=== PATIENT | male | born 1975 | race Caucasian/White ===

== ENCOUNTER 2016-04-16 09:05 | Emergency (ER) | payer OTHER ==
[2016-04-16 09:24] VITALS: BP 131/84
--- NOTE | 2016-04-16 09:56 | UC ---
Milad Herron Salem, [facility] on 04/16/16 at 0936 . Back Pain HPI - HPI Summary HPI Summary: HPI: Patient is a 41 y/o male who presents to the with left lower back pain since 3 days ago. He states that he has been experiencing intermittent back pain for a few years since onset years ago related to an incident with moving stones. Pt reports that pain recently worsened: starting in left lower back pain and moving to the whole lower back and to abd tightness after BM. He describes the pain as sharp, shooting, and stabbing. He also reports tingling in the lower extremities radiating to the toes (although this is a continuing sx). Pt has no other complaints, but reports coughing and congestion from smoking. FHx: TONY WHALEN note: VSS, post ox: 98%, 8/10 left lumbar pain, rare EtOH, 1-pack per day smoker. Hx of chronic pain. Visit review: MRI in 2012, back pain complaint June 2013, o/w non-contributory. Allergic cephalexin, on no prescription medication. [facility] Ref : [id number] Vicodin [id number] 2015. MRI: Low left leg radiculopathy on 11/24/12 showing degenerative spondylosis and facet joint osteoarthritis without significant central canal foraminal stenosis at any level Nurses note: Per pt, Has chronic back issues, herniated discs and crushed disc in low back, L -1, L-2. Has chronic pain, but got worse on 04/13/16, after being on the toilet. Pain shoots up to a 10 with certain movements, otherwise is at a 7-8 out of 10. - History of Current Complaint Chief Complaint: UCBackPain Stated Complaint: LOWER BACK PAIN Time Seen by Provider: 04/16/16 09:18 Hx Obtained From: Patient Onset/Duration: Gradual Onset, Lasting Weeks - Years. Timing: Intermittent Severity Initially: Moderate Severity Currently: Moderate Back Pain: Radiates To - toe. Character: Sharp - Shooting and stabbing. Aggravating: Nothing Alleviating: Nothing Associated Signs And Symptoms: Positive: Tingling - in legs., Abdominal Pain - Abd tightness. - Allergies/Home Medications Allergies/Adverse Reactions: Allergies Allergy/AdvReac Type Severity Reaction Status Date / Time Cephalexin [From Keflex] AdvReac Severe Diarrhea Verified 09/13/15 16:44 Home Medications: Home Medications Aspirin-Caffeine [Vanessa Back & Body 500-32.5 mg] 2 tab PO PRN 04/16/16 [History] PMH/Surg Hx/FS Hx/Imm Hx Endocrine History Of: Denies: Diabetes, Thyroid Disease - Surgical History Surgical History: Yes Surgery Procedure, Year, and Place: PIECE OF METAL REMOVED FROM Lt FOOT. CYST - Lt ARM - Family History Known Family History: Positive: Other - CA. Negative: Cardiac Disease, Hypertension - Social History Occupation: Unemployed Alcohol Use: Rare Substance Use Type: Marijuana Substance Use Comment - Amount & Last Used: daily Smoking Status (MU): Current Every Day Smoker Type: Cigarettes Amount Used/How Often: 1 1/2 Household Exposure Type: Cigarettes - Immunization History Most Recent Influenza Vaccination: never Most Recent Tetanus Shot: up to date - within the past 5 years per patient Review of Systems Constitutional: Negative Musculoskeletal: Other: - Back pain. All Other Systems Reviewed And Are Negative: Yes Physical Exam Triage Information Reviewed: Yes Appearance: Well-Appearing, No Pain Distress, Well-Nourished Vital Signs: Initial Vital Signs Temp 98.3 F 04/16/16 09:16 Pulse 86 04/16/16 09:16 Resp 18 04/16/16 09:16 BP 131/84 04/16/16 09:16 Pulse Ox 98 04/16/16 09:16 Vital Signs Reviewed: Yes Eyes: Positive: Conjunctiva Clear ENT: Positive: Hearing grossly normal, Pharynx normal, TMs normal. Negative: Muffled/hoarse voice Neck: Positive: Supple, No Lymphadenopathy Respiratory: Positive: Chest non-tender, Lungs clear, Normal breath sounds, No respiratory distress Cardiovascular: Positive: RRR, No Murmur Abdomen Description: Positive: Nontender, No Organomegaly, Soft Bowel Sounds: Positive: Present Musculoskeletal: Positive: Strength Intact, Other: - MEDLEY. DISCOMFORT WITH MOVEMENT OVER LUMBAR AREA. Neurological: Positive: Alert Psychological: Positive: Age Appropriate Behavior Skin: Negative: rashes Back Pain Course/Dx - Course Course Of Treatment: MDM: Pt with chronic, primarily, left lumbar discomfort with spine osteoarthritis presents with increasing left lumbar pain. His distal motor and sensory are nml, can walk without limitation. He has learned to self- medicate at home, but in the last 3 days his pain has worsened. We discussed at length the need to set up physical therapy to deal with this on a daily basis. I will also give him Vicodin to get him through the night and recommend Ibuprofen for the next 3-4 days. Differential dx: lumbar osteoarthritis vs nerve impingement vs muscle strain. - Differential Dx/Diagnosis Provider Diagnoses: Dx: Left lumbar muscle strain. Discharge - Discharge Plan Condition: Stable Disposition: HOME Prescriptions: HYDROcodone/ACETAMIN 5-325 MG* [Inyokern 5-325 TAB*] 1 tab PO Q6H #7 tab MDD 4 Patient Education Materials: Low Back Strain (ED), Core Strengthening Exercises (GEN), Lower Back Exercises (ED) Referrals: No Primary Care Phys,NOPCP [Primary Care Provider] - Additional Instructions: WE DISCUSSED: 1. YOU HAVE MOST LIKELY INJURED THE MUSCLES IN YOUR LOW BACK. 2. YOU NEED A STRATEGY TO EXERCISES AND CARE FOR YOUR BACK, DAY BY DAY. 3. I HAVE PRESCRIBED PHYSICAL THERAPY TO WORK THIS OUT. 4. CONTINUE YOUR SELF MEDICATION PROGRAM. 5. FOR THE NEXT 2-3 NIGHTS, I HAVE GIVEN YOU SOME VICODIN TO HELP YOU GET TO SLEEP. 6. WARM MOIST HEAT IN THE MORNING; ICE MASSAGE TO AREA OF PAIN AFTER USE. TAKE IBUPROFEN SOON YOU THINK THIS AREA HAS BEEN REINJURED. 7. CALL AT ANY TIME FOR QUESTIONS OR CONCERNS. 8. THIS IS YOUR PHYSICAL THERAPY REFERRAL: PHYSICAL THERAPY REFERRAL: This is your referral to a physical therapist. The physical therapy (PT) will help you recover. After an injury, PT can reduce swelling and pain. In recovery, PT is used to restore mobility and strength. Your specific treatment goals are: +++Reduction of Swelling (EGS, US, ice as needed) +++Pain Reduction (EGS, US, ice as needed) +++Sabianism of Mobility: PLAN OF DAY TO DAY EXERCISES AND TREATMENT OF CHRONIC LOW BACK PAIN. -Your diagnosis is: strain/sprain/LUMBAR AREA. -Duration of therapy: two weeks or until resolution of condition. -Your physician re-evaluation needs to be arranged by you. The documentation as recorded by the Milad john Salem accurately reflects the service I personally performed and the decisions made by me, Allen Stratton MD.
== END 2016-04-16 10:44 | disposition home or self-care (01) ==
LOC: UCEAST 09:05
DX: S39.012A Strain of muscle, fascia and tendon of lower back, initial encounter (principal); X58.XXXA Exposure to other specified factors, initial encounter; Y93.9 Activity, unspecified; Y92.9 Unspecified place or not applicable; Z88.1 Allergy status to other antibiotic agents; F12.90 Cannabis use, unspecified, uncomplicated; F17.210 Nicotine dependence, cigarettes, uncomplicated
CPT/HCPCS: 99212; G0463

== ENCOUNTER 2016-05-28 09:29 | Emergency (ER) | payer BC, OTHER ==
[2016-05-28 09:44] VITALS: BP 115/71
[2016-05-28] MEDS ORDERED: Lidocaine 2% 10 ML* VIAL INJ ONE (10:15)
[2016-05-28] MEDS ORDERED: Lidocaine 2% PF * 5 ML VIAL ONE (10:16)
[2016-05-28] MEDS ORDERED: Ondansetron ODT TAB* 4 MG PO ONE (10:36)
--- NOTE | 2016-05-28 11:10 | UC ---
Laceration HPI - HPI Summary HPI Summary: TWO HOURS AGO HAD BEEN RAMYA CUT RIGHT THUMB AND INDEX FINGER, TETANUS UP TO DATE. - History Of Current Complaint Chief Complaint: UCLaceration Stated Complaint: HAND LACERATION Time Seen by Provider: 05/28/16 09:55 Hx Obtained From: Patient Laceration Location: Finger Mechanism Of Injury: Sharp Trauma Onset/Duration: Sudden Onset, Lasting Hours, Still Present Aggravating Factors: Movement, Other: - TOUCH Related History: Occupational Injury - Allergies/Home Medications Allergies/Adverse Reactions: Allergies Allergy/AdvReac Type Severity Reaction Status Date / Time Cephalexin [From Keflex] AdvReac Severe Diarrhea Verified 05/28/16 09:43 Home Medications: Home Medications NK [No Home Medications Reported] 05/28/16 [History Confirmed 05/28/16] PMH/Surg Hx/FS Hx/Imm Hx Previously Healthy: Yes Endocrine History Of: Denies: Diabetes, Thyroid Disease, Hyperthyroidism, Hypothyroidism, Dyslipidemia Cardiovascular History Of: Denies: Cardiac Disorders, Hypertension, Pacemaker/ICD, Myocardial Infarction , Congestive Heart Failure, Atrial Fibrillation, Deep Vein Thrombosis, Bleeding Disorders Respiratory History Of: Denies: COPD, Asthma, Bronchitis, Pneumonia, Pulmonary Embolism GI/ History Of: Denies: Gastroesophageal Reflux, Ulcer, Gastrointestinal Bleed, Gall Bladder Disease, Kidney Stones, Diverticulitis, Renal Disease, Urosepsis Neurological History Of: Denies: TIA, CVA, Dementia, Seizures, Migraine Psychological History Of: Denies: Anxiety, Depression, Bipolar Disorder, Schizophrenia, Post Traumatic Stress Disorder Cancer History Of: Denies: Lung Cancer, Colorectal Cancer, Breast Cancer, Prostate Cancer, Cervical Cancer Other History Of: Negative For: HIV, Hepatitis B, Hepatitis C, Anticoagulant Therapy - Surgical History Surgical History: Yes Surgery Procedure, Year, and Place: PIECE OF METAL REMOVED FROM Lt FOOT. CYST - Lt ARM - Family History Known Family History: Positive: Other - CA. Negative: Cardiac Disease, Hypertension, Blood Disorder - Social History Occupation: Employed Full-time Lives: With Family Alcohol Use: Rare Substance Use Type: Marijuana Substance Use Comment - Amount & Last Used: daily Smoking Status (MU): Current Every Day Smoker Type: Cigarettes Amount Used/How Often: 1 1/2 Have You Smoked in the Last Year: Yes Household Exposure Type: Cigarettes - Immunization History Most Recent Influenza Vaccination: never Most Recent Tetanus Shot: up to date - within the past 5 years per patient Review of Systems Constitutional: Negative Skin: Other - RIGHT THUMB AND RIGHT INDEX FINGER LACERATION Eyes: Negative ENT: Negative Respiratory: Negative Cardiovascular: Negative Gastrointestinal: Negative Genitourinary: Negative Motor: Negative Neurovascular: Negative Musculoskeletal: Negative Neurological: Negative Psychological: Negative All Other Systems Reviewed And Are Negative: Yes Physical Exam Triage Information Reviewed: Yes Appearance: Well-Appearing, No Pain Distress, Well-Nourished Vital Signs: Initial Vital Signs Temp 98.7 F 05/28/16 09:36 Pulse 86 05/28/16 09:36 Resp 18 05/28/16 09:36 BP 115/71 05/28/16 09:36 Pulse Ox 97 05/28/16 09:36 Vital Signs Reviewed: Yes Eye Exam: Normal ENT Exam: Normal ENT: Positive: Normal ENT inspection, Hearing grossly normal, Pharynx normal, TMs normal Dental Exam: Normal Neck exam: Normal Neck: Positive: Supple, Nontender, No Lymphadenopathy Respiratory Exam: Normal Respiratory: Positive: Chest non-tender, Lungs clear, Normal breath sounds, No respiratory distress, No accessory muscle use Cardiovascular Exam: Normal Cardiovascular: Positive: RRR, No Murmur, Pulses Normal Abdominal Exam: Normal Musculoskeletal Exam: Normal Musculoskeletal: Positive: Strength Intact, ROM Intact Neurological Exam: Normal Psychological Exam: Normal Skin: Positive: Other - LACERATION RIGHT THUMB AND RIGHT INDEX FINGER Laceration Repair - Laceration Repair 1 Description: Linear - RIGHT THUMB Laceration Size After Repair: Length (cm) - 1.5, Width (mm) - 3, Depth (mm) - 5 Type Injection: Digital Anesthesia Used: 2.0% Lido Cleansing Completed Via Routine Prep: Yes Irrigation With Pressure Irrigation Device: Yes Closure Material: Sutures Closure Method: Single Layer Suture Of: Skin, SQ Suture Type: Prolene - 3 X 4-0 PROLENE 2 Description: Linear - RIGHT INDEX FINGER Laceration Size After Repair: Length (cm) - 0.8, Width (mm) - 2, Depth (mm) - 2 Closure Material: Skin Adhesive, SteriStrips Laceration Course/Dx - Differential Dx - Laceration/Wound Differental Diagnoses: Laceration Provider Diagnoses: LACERATION RIGHT THUMB WITH REPAIR; LACERATION RIGHT INDEX FINGER WITH REPAIR Discharge - Discharge Plan Condition: Stable Disposition: HOME Patient Education Materials: Care For Your Stitches (ED), Finger Laceration (ED ), Skin Adhesive Care (ED) Referrals: Rubio Cerda MD [Primary Care Provider] - Additional Instructions: please have sutures removed in ten days Images Hands: 1 - LACERATION 2 - LACERATION
== END 2016-05-28 11:10 | disposition home or self-care (01) ==
LOC: UCEAST 09:29
DX: S61.011A Laceration without foreign body of right thumb without damage to nail, initial encounter (principal); S61.210A Laceration without foreign body of right index finger without damage to nail, initial encounter; W45.8XXA Other foreign body or object entering through skin, initial encounter; Z88.3 Allergy status to other anti-infective agents; F17.210 Nicotine dependence, cigarettes, uncomplicated; F12.90 Cannabis use, unspecified, uncomplicated
CPT/HCPCS: 12031; 99211; G0463; J2001

== ENCOUNTER 2017-04-19 16:58 | Emergency (ER) | payer BC ==
[2017-04-19 17:15] VITALS: BP 135/92
--- NOTE | 2017-04-19 17:32 | UC ---
Skin Complaint HPI - HPI Summary HPI Summary: Pt presents with two complaints: 1) He tells me that for the last 2-3 weeks he has had worsening sinus pain/ pressure/congestion. At first he thought it was his tooth causing him pain as he has had to have many teeth pulled in the past. Has not been taking anything OTC. Denies fever, chills, sore throat, SOB, chest pain. He is still smoking daily. 2) He is most concerned about the nodule on his left volar index finger. He tells me that about 1 year ago he got a sliver in this area and thought he removed it all, but even since that time it will randomly swell and cause him mild pain. He tries to poke it with various instruments at home, but can never get it to go down. Is able to flex and extend finger. Denies numbness, tingling , or drainage. - History of Current Complaint Hx Obtained From: Patient Onset/Duration: Gradual Onset Current Severity: None Pain Intensity: 0 <Anatoliy Toledo - Last Filed: 04/19/17 17:39> <Mayela Millan - Last Filed: 04/19/17 17:59> - History of Current Complaint Chief Complaint: UCSkin Time Seen by Provider: 04/19/17 17:05 Stated Complaint: SOFT TISSUE - Allergy/Home Medications Allergies/Adverse Reactions: Allergies Allergy/AdvReac Type Severity Reaction Status Date / Time cephalexin Allergy Severe Diarrhea Verified 04/19/17 17:06 Home Medications: Home Medications Aspirin/Caffeine [Vanessa Back & Body Pain Ex] 1 tab PO BID PRN 04/19/17 [History Confirmed 04/19/17] Review of Systems Constitutional: Negative Skin: Other - Nodule left index finger ENT: Nasal Discharge, Sinus Congestion, Sinus Pain/Tenderness Respiratory: Negative Cardiovascular: Negative Gastrointestinal: Negative Musculoskeletal: Negative Neurological: Negative Psychological: Negative All Other Systems Reviewed And Are Negative: Yes <Anatoliy Toledo - Last Filed: 04/19/17 17:39> PMH/Surg Hx/FS Hx/Imm Hx Other History Of: Negative For: HIV, Hepatitis B, Hepatitis C, Anticoagulant Therapy - Surgical History Surgical History: Yes Surgery Procedure, Year, and Place: PIECE OF METAL REMOVED FROM Lt FOOT. CYST - Lt ARM - Family History Known Family History: Positive: Other - CA. Negative: Cardiac Disease, Hypertension, Blood Disorder - Social History Occupation: Employed Full-time Lives: With Family Alcohol Use: Rare Substance Use Type: Marijuana Substance Use Comment - Amount & Last Used: daily last used 04/19/2017 Smoking Status (MU): Current Every Day Smoker Type: Cigarettes Amount Used/How Often: 1 1/2 Have You Smoked in the Last Year: Yes Household Exposure Type: Cigarettes - Immunization History Most Recent Influenza Vaccination: never Most Recent Tetanus Shot: less than 5 years ago per patient <Anatoliy Toledo - Last Filed: 04/19/17 17:39> Physical Exam - Summary Physical Exam Summary: GENERAL: NAD. WDWN HEENT: NC/AT. Conjunctiva clear without inflammation or discharge. TMs intact , no bulging, erythema, or edema. Nasal mucosa mildly swollen and erythematous with clear discharge. Mild TTP maxillary and frontal sinus. Posterior oropharynx without exudates, erythema, or tonsillar enlargement. Uvula midline. NECK: Supple without lymphadenopathy CHEST: CTAB. No r/r/w. No accessory muscle use. Breathing comfortably and in no distress. CV: RRR. Without m/r/g. Pulses intact. MSK: Left volar index finger nodule just inferior to the PIP. 1.0cm in size. Firm and mobile. No erythema. FROM. SKIN: No rash or erythema noted. NEURO: Alert. CN II-XII grossly intact. PSYCH: Age appropriate behavior. Triage Information Reviewed: Yes Vital Signs: Initial Vital Signs Temp 98.6 F 04/19/17 17:05 Pulse 89 04/19/17 17:05 Resp 18 04/19/17 17:05 BP 135/92 04/19/17 17:05 Pulse Ox 96 04/19/17 17:05 <Anatoliy Toledo - Last Filed: 04/19/17 17:39> Vital Signs: Initial Vital Signs Temp 98.6 F 04/19/17 17:05 Pulse 89 04/19/17 17:05 Resp 18 04/19/17 17:05 BP 135/92 04/19/17 17:05 Pulse Ox 96 04/19/17 17:05 <Mayela Millan - Last Filed: 04/19/17 17:59> Course/Dx - Course Course Of Treatment: Sinusitis. Regarding his left index finger, this does not appear to be infectious or fluctuant - I will refer him to Orthopedics for further eval and possible removal. - Diagnoses Provider Diagnoses: Left index finger nodule. Sinusitis <Anatoliy Toledo - Last Filed: 04/19/17 17:39> Discharge <Anatoliy Toledo - Last Filed: 04/19/17 17:39> <Mayela Millan - Last Filed: 04/19/17 17:59> - Discharge Plan Condition: Stable Disposition: HOME Prescriptions: Azithromycin TAB* [Zithromax TAB (Z-LENNY) 250 mg #6 tabs] 2 tab PO .TODAY, THEN 1 DAILY #1 lenny Patient Education Materials: Sinusitis (ED) Referrals: Rubio Cerda MD [Primary Care Provider] - Arelis Clark MD [Medical Doctor] - As Soon As Possible Additional Instructions: If you develop a fever, shortness of breath, chest pain, new or worsening symptoms - please call your PCP or go to the ED. Your blood pressure was high at todays visit. Please see your primary provider within 4 weeks for recheck and re-evaluation. 1) Please call Orthopedics at the number below to schedule an appointment regarding your finger nodule. Attestation Statement User Type: Provider - I was available for consult. This patient was seen by the KELLEY. The patient was not presented to, seen by, or examined by me. Agueda <Mayela Millan - Last Filed: 04/19/17 17:59>
== END 2017-04-19 17:30 | disposition home or self-care (01) ==
LOC: UCEAST 16:58
DX: M79.9 Soft tissue disorder, unspecified (principal); J32.9 Chronic sinusitis, unspecified; Z88.1 Allergy status to other antibiotic agents; F17.210 Nicotine dependence, cigarettes, uncomplicated
CPT/HCPCS: 99212; G0463

== ENCOUNTER 2017-04-30 09:51 | Day surgery (SDC) | payer BC ==
--- NOTE | 2017-04-28 21:47 | HP ---
PREOPERATIVE HISTORY AND PHYSICAL: DATE OF SURGERY/ADMISSION: 04/30/17 [facility] DATE OF OFFICE VISIT/ENCOUNTER: 04/21/17 ATTENDING SURGEON: Arelis Clark MD * (DICTATED BY DOMINIK ORTEGA) PROCEDURE: Left index finger excision mass. CHIEF COMPLAINT: Mass on left index finger. HISTORY OF PRESENT ILLNESS: This is a 42-year-old male who complains of an injury to his left index finger approximately a year ago. He got a splinter in his finger and he thinks he got most of it out, but he has had problems over time and thinks there is still a piece of a splinter in the finger. He has had an increase in swelling in the area and it has gotten quite large. He would like to have the splinter removed. He denies any associated numbness or tingling. PAST MEDICAL HISTORY: Current sinus infection, the patient is finishing a Z- Silver. PAST SURGICAL HISTORY: 1. Left foot foreign body removal. 2. Right arm cyst excision. CURRENT MEDICATIONS: Vanessa Back and Body p.r.n. ALLERGIES: KEFLEX causes nausea. FAMILY MEDICAL HISTORY: Breast cancer. 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 He is a current smoker. He smokes a pack and half per day and has done so for the past 30 years. He smokes marijuana with some regularity and drinks alcohol on very rare occasions. REVIEW OF SYSTEMS: General: Negative for fevers, chills, or night sweats. No known anesthesia problems. HEENT: Negative for headache, lightheadedness, or syncopal episodes. Integumentary: Negative for abrasions, lesions, or open wounds. Cardiothoracic: Negative for hypertension, chest pain, palpitations, or edema. Pulmonary: Negative for shortness of breath with exertion, chronic cough, or COPD. GI: Negative for nausea, vomiting, diarrhea, constipation, or GERD. : Negative for nocturia, urinary frequency, urgency, history of UTIs, or kidney problems. Musculoskeletal: Positive for current complaint and positive for chronic back pain. Neurologic: Negative for paresthesias, numbness, history of seizures, stroke, or epilepsy. Endocrine: Negative for diabetes and thyroid issues. Hematologic: Negative for easy bruising, anemia, excessive bleeding, and history of DVT. Infectious Disease: Negative for history of MRSA, hepatitis C, and HIV. PHYSICAL EXAMINATION GENERAL: Well-developed, well-nourished 42-year-old male in no acute distress. VITAL SIGNS: Height 5 feet 10 inches, weight 158 pounds. Pulse rate 71, blood pressure 128/88. HEENT: Normocephalic, atraumatic. Pupils are equal, round, and reactive to light and accommodation. Extraocular movements are intact. NECK: Supple. No palpable lymph nodes. Throat is clear. PULMONARY: Lungs are clear to auscultation bilaterally. No wheezes, rales, or rhonchi. Cardiovascular: Regular rate and rhythm. S1 and S2. No murmurs, rubs, or gallops. No edema. ABDOMEN: Positive bowel sounds, soft, nontender. NEUROLOGIC: Alert and oriented x3. Cranial nerves II through XII are intact. Sensation is intact to light touch. MUSCULOSKELETAL: On exam of his left index finger, he has a 1.5 x 1 cm diameter mass overlying the proximal phalanx on the left index finger volar aspect. It is not tender to palpation. There is a negative Tinel's sign. He has full motion into flexion and extension of the finger. The mass is firm, subcutaneous, and mobile. Neurovascular function is intact. IMAGING STUDIES: X-rays AP, lateral, and oblique of the index finger appear normal. IMPRESSION: Left index finger mass. PLAN: The patient is scheduled to go a left index finger excision mass with Dr. Clark on 04/30/17. He will return to the office 10 days postop for followup and suture removal. He is planning on using [id number] medications for postoperative pain management. DOMINIK ORTEGA [id number]/[facility] #: [id number] [facility] HOSPITALBenjamin
[~2017-04-30 09:51] MED LIST: Buffered Lidocaine 0.9% SYRIN* 5 ML/SYR SYRINGE INTRADERM ONE; Lidocaine 1% INJ* 10 MG/ML 30 ML SDV ONE
[2017-04-30 10:38] VITALS: BP 118/73
--- NOTE | 2017-05-01 00:12 | OP ---
DATE OF OPERATION: 04/30/17 [facility] DATE OF : 79 SURGEON: Arelis Clark MD CONDEMNATION ENGINEER: DOMINIK Iniguez ANESTHESIA: Local. PRE-OP DIAGNOSIS: Left index finger mass. POST-OP DIAGNOSIS: Left index finger mass. OPERATIVE PROCEDURE: Removal of left index finger mass. ESTIMATED BLOOD LOSS: Zero. TOURNIQUET TIME: About 10 minutes. INDICATION FOR PROCEDURE: Miguel Angel is a 42-year-old male with a painful mass on the volar aspect of his left index finger overlying his proximal phalanx. He presents for removal. DESCRIPTION OF PROCEDURE: The patient was brought to the operating room, was given a digital block with 10 cc of 1% plain lidocaine. The skin of his left hand and forearm was prepped and draped in the usual sterile fashion. The finger was exsanguinated with a Tourni-Cot and then a diagonal incision was made centered over the mass. There was an inclusion cyst and then a surrounding capsular cyst as well. This was all removed in its entirety, taking care to retract the digital neurovascular bundles. The wound was irrigated and the skin edges were reapproximated with 4-0 nylon suture. The wound was dressed with Xeroform, 4x4, Webril, and Coban. The patient tolerated the procedure well and was brought to the recovery room in good condition. [id number]/[facility] #: [id number] MTDD
== END 2017-04-30 10:50 | disposition home or self-care (01) ==
LOC: OREAST 09:51
PROVIDERS: ATTEND Orthopaedic Surgery
DX: L72.8 Other follicular cysts of the skin and subcutaneous tissue (principal); L72.0 Epidermal cyst; F17.210 Nicotine dependence, cigarettes, uncomplicated; Z88.8 Allergy status to other drugs, medicaments and biological substances
CPT/HCPCS: 88304

== ENCOUNTER 2017-07-15 15:41 | Emergency (ER) | payer BC ==
[2017-07-15 15:51] VITALS: BP 120/82
[2017-07-15] MEDS ORDERED: Amoxicillin/Clavulanate TAB* 875 MG PO ONE (16:41)
--- NOTE | 2017-07-15 16:43 | UC ---
Laceration HPI - HPI Summary HPI Summary: laceration to right anterior chin-patient got a radiator dropped on his leg at 10 am today - History Of Current Complaint Chief Complaint: UCLaceration Stated Complaint: LEG LACERATION Time Seen by Provider: 07/15/17 16:38 Hx Obtained From: Patient Laceration Location: Calf - right anterior chin Mechanism Of Injury: Blunt Trauma Onset/Duration: Sudden Onset, Lasting Hours - 6-7 hours ago Pain Intensity: 0 Pain Scale Used: 0-10 Numeric Aggravating Factors: Nothing - Allergies/Home Medications Allergies/Adverse Reactions: Allergies Allergy/AdvReac Type Severity Reaction Status Date / Time cephalexin Allergy Severe Diarrhea Verified 07/15/17 15:51 PMH/Surg Hx/FS Hx/Imm Hx Previously Healthy: Yes Other History Of: Negative For: HIV, Hepatitis B, Hepatitis C, Anticoagulant Therapy - Surgical History Surgical History: Yes Surgery Procedure, Year, and Place: PIECE OF METAL REMOVED FROM Lt FOOT. CYST - Lt ARM - Family History Known Family History: Positive: Other - CA. Negative: Cardiac Disease, Hypertension, Blood Disorder - Social History Occupation: Employed Full-time Lives: With Family Alcohol Use: Rare Substance Use Type: Marijuana Substance Use Comment - Amount & Last Used: daily Smoking Status (MU): Heavy Every Day Tobacco Smoker Type: Cigarettes Amount Used/How Often: 1 1/2 Have You Smoked in the Last Year: Yes Household Exposure Type: Cigarettes - Immunization History Most Recent Influenza Vaccination: never Most Recent Tetanus Shot: less than 5 years ago per patient Review of Systems Constitutional: Negative Skin: Negative, Other - 6 cm laceration right mid chin Eyes: Negative ENT: Negative Respiratory: Negative Cardiovascular: Negative Gastrointestinal: Negative Genitourinary: Negative Motor: Negative Neurovascular: Negative Musculoskeletal: Negative Neurological: Negative Psychological: Negative Is Patient Immunocompromised?: No All Other Systems Reviewed And Are Negative: Yes Physical Exam Triage Information Reviewed: Yes Appearance: Well-Appearing, No Pain Distress, Well-Nourished Vital Signs: Initial Vital Signs Temp 99.0 F 07/15/17 15:46 Pulse 94 07/15/17 15:46 Resp 16 07/15/17 15:46 BP 120/82 07/15/17 15:46 Pulse Ox 96 07/15/17 15:46 Vital Signs Reviewed: Yes Eye Exam: Normal Eyes: Positive: Conjunctiva Clear ENT Exam: Normal ENT: Positive: Normal ENT inspection, Hearing grossly normal. Negative: Trismus , Muffled voice, Hoarse voice, Dental tenderness Dental Exam: Normal Neck exam: Normal Neck: Positive: Supple, Nontender, No Lymphadenopathy Respiratory Exam: Normal Respiratory: Positive: Chest non-tender, No respiratory distress, No accessory muscle use Cardiovascular Exam: Normal Cardiovascular: Positive: RRR, No Murmur, Pulses Normal, Brisk Capillary Refill Musculoskeletal Exam: Normal Musculoskeletal: Positive: Strength Intact, ROM Intact, No Edema Neurological Exam: Normal Neurological: Positive: Alert, Muscle Tone Normal Psychological Exam: Normal Psychological: Positive: Normal Response To Family Skin Exam: Normal Skin: Positive: Other - additional wound cleansing done after x-ray 3 piences of metal removed from wound Laceration Repair - Laceration Repair 1 Description: Linear Laceration Size After Repair: Length (cm) - 6, Width (mm) - 4, Depth (mm) - 2 Contamination/FB Removal: metal Modified For Repair: No Type Injection: Local Anesthesia Used: 1.0% Lido - 5cc Cleansing Completed Via Routine Prep: Yes Irrigation With Pressure Irrigation Device: Yes Closure Material: Sutures Closure Method: Single Layer Suture Of: Skin - 6 number 5 .0 suture placed--wound well approximated patient tolerated well Suture Type: Nylon Laceration Course/Dx - Course/Dx Course Of Treatment: daily soap and water wash, suture removal in 12 days, augmentin, nicotine cesasation - Differential Dx - Laceration/Wound Provider Diagnoses: suture repair 6 cm laceration right anterior lower leg, nicotine dependant Discharge - Sign-Out/Discharge Documenting (check all that apply): Discharge/Admit/Transfer - Discharge Plan Condition: Stable Disposition: HOME Prescriptions: Amoxicillin/Clavulanate TAB* [Augmentin TAB 875*] 875 mg PO BID #20 tab Patient Education Materials: Laceration (ED) Referrals: Rubio Cerda MD [Primary Care Provider] - If Needed Additional Instructions: Please return for suture removal in 12 days - Billing Disposition and Condition Condition: STABLE Disposition: Home
[2017-07-15] MEDS ORDERED: Lidocaine 1%* 5 ML VIAL ONE (17:21)
--- NOTE | 2017-07-15 17:24 | RAD ---
Indication: Forearm body. 2 views of the right lower leg demonstrates no fracture. No radiopaque foreign body is identified. IMPRESSION: No fracture of the right lower leg is noted.
== END 2017-07-15 18:29 | disposition home or self-care (01) ==
LOC: UCEAST 15:41
DX: S81.811A Laceration without foreign body, right lower leg, initial encounter (principal); W20.8XXA Other cause of strike by thrown, projected or falling object, initial encounter; Y93.9 Activity, unspecified; Y92.9 Unspecified place or not applicable; Z88.1 Allergy status to other antibiotic agents; Z80.9 Family history of malignant neoplasm, unspecified; F17.210 Nicotine dependence, cigarettes, uncomplicated
CPT/HCPCS: 12002; 99212; A9270-GY; G0463